=== PATIENT | female | born 1940 | race Caucasian/White ===

== ENCOUNTER 2019-02-22 05:45 | Inpatient (IN) ==
--- NOTE | 2019-02-21 10:46 | Anesthesiology Consultation ---
Date of Service February 21, 2019 Assessment & Plan Chart Review Chart Review: Acceptable Risk for Surgery and Patient NOT seen in Pre Admission Testing Consults Requested none ASA ASA4 Proposed Anesthesia Anesthesia Type: General Anesthesia Line Insertion: Arterial line History Surgery Operation Date: 02/22/19 07:30 Proposed Procedures p Left Robotic Video Assisted Thoracoscopy with Left Upper Lobectomy and Mediastinal Lymphadenectomy - Rey Marshall MD, FACS Height/Weight Height: 5 ft 5 in Weight: 88.451 kg Allergies Allergy/AdvReac Type Severity Reaction Status Date / Time No Known Allergies Allergy Verified 02/14/19 14:22 Medications Home Medications Medication Instructions Recorded Confirmed Last Taken aspirin 81 mg tablet,delayed 81 mg PO QAM 02/06/19 02/14/19 Unknown release atorvastatin 40 mg tablet 40 mg PO QPM 02/06/19 02/14/19 Unknown calcium carbonate 600 mg (1,500 1 tab PO QDL 02/06/19 02/14/19 Unknown mg)-vitamin D3 200 unit tablet esomeprazole magnesium 40 mg 40 mg PO QAM cap 02/06/19 02/14/19 Unknown capsule,delayed release latanoprost 0.005 % eye drops 1 drops OP QPM 02/06/19 02/14/19 Unknown lisinopril 40 mg tablet 40 mg PO QAM 02/06/19 02/14/19 Unknown raloxifene 60 mg tablet 60 mg PO QAM 02/06/19 02/14/19 Unknown omega-3 fatty acids 1,000 mg 1,000 mg PO QAM 02/09/19 02/14/19 Unknown capsule venlafaxine ER 75 mg 75 mg PO QAM 02/09/19 02/14/19 Unknown capsule,extended release 24 hr Past Medical History Medical History Adenocarcinoma in situ lung Arthritis Enlarged thyroid gland "PUSHING ON MY [place]" - CT SCAN OCTOBER 2018 - SARAI RAZA - PT REPORTS WILL BE NEEDING SURGERY ON THYROID IN FUTURE GERD (gastroesophageal reflux disease) History of CO (myocardial infarction) "SILENT" - YEARS AGO - FOLLOWS W/ DR. MONTEIRO History of anemia History of gastritis Hyperlipemia Hypertension Osteoarthritis Osteoporosis Sleep apnea DOES NOT TOLERATE CPAP Exercise / Class Metabolic Activity III < 4 Walking/Shop/Light housework Past Family History Family History Father Heart disease Hypertension Mother Heart disease Hypertension Stroke Sister Breast cancer Cancer 3 sisters Family history of reaction to anesthesia Past Surgical History Surgical History History of back surgery REMOVAL OF CYST History of bladder surgery X 2 History of cardiac cath 10-15 YEARS AGO - [facility] - NO STENTS. REPORTS 100% OCCLUSION BUT W/ COLLATERAL History of colonoscopy History of esophagogastroduodenoscopy (EGD) History of total abdominal hysterectomy and bilateral salpingo-oophorectomy Hx of breast surgery Status post bronchoscopy with biopsy Past Anesthesia History No Hx of Anesthesia Complications and No Family Hx of Anesthesia Complications History of PONV No Hx of PONV and No Hx of Motion Sickness Social History Smoking Status: Never smoker Do You Dip or Chew Tobacco: No Hx Alcohol Use: No Hx Substance Use: No Testing Electrocardiogram Date: 02/14/19 SR at 64 w/ short MN Chest X-Ray Date: 01/23/19 soft tissue density DHARA;superior mediastinal prominence w/ soft tissue mass or adenopathy;ASCVD;coronary artery calcifications
[2019-02-22] MEDS ORDERED: LR 15ML/HR IV SCH (06:00)
[2019-02-22] MEDS ORDERED: fentaNYL citrate 100 MCG/2 ML VIAL ONE ×2 (06:53→08:42)
[2019-02-22] MEDS ORDERED: LIDOCAINE HCL 2% 2 ML VIAL/AMP(20MG/ML) INFIL ONE (06:53)
[2019-02-22] MEDS ORDERED: PROPOFOL IV EMULSION 10 MG/ML 20 ML VIAL IV ONE (06:53)
[2019-02-22] MEDS ORDERED: MIDAZOLAM HCL 1 MG/ML 2ML VIAL ONE (06:53)
[2019-02-22] MEDS ORDERED: ROCURONIUM BROMIDE 10 MG/ML 5 ML VIAL ONE ×7 (06:53→09:39)
[2019-02-22] MEDS ORDERED: BUPIVACAINE 0.5 % 5 MG/1 ML MPF 30ML VIAL ONE (06:56)
[2019-02-22] MEDS ORDERED: SODIUM CHLORIDE 0.9% PF 50 ML VIAL ONE (06:57)
[2019-02-22] MEDS ORDERED: BUPIVACAINE LIPOSOME 1.3% 266 MG/20 ML VIAL ONE (06:57)
--- NOTE | 2019-02-22 07:11 | History & Physical Bridge Note ---
Date of Service February 22, 2019 History & Physical Bridge Note I have examined the patient, reviewed the History & Physical and in the interval since the performance of the History & Physical I have noted the following changes of clinical significance: no changes noted
[2019-02-22] MEDS ORDERED: ePHEDrine sulfate 50 MG/ML SYR ONE ×2 (08:10→10:24)
[2019-02-22] MEDS ORDERED: CLINDAMYCIN PHOS 300 MG/2 ML VIAL ONE ×2 (08:38→08:42)
[2019-02-22] MEDS ORDERED: GLYCOPYRROLATE 0.2 MG/ML VIAL ONE ×2 (08:53→09:39)
[2019-02-22] MEDS ORDERED: DEXAMETHASONE SOD INJ 4 MG/ML VIAL ONE (09:37)
[2019-02-22] MEDS ORDERED: ePHEDrine sulfate 50 MG/ML AMP IV PRN (10:15)
[2019-02-22] MEDS ORDERED: ONDANSETRON INJ 2 MG/ML 2 ML VIAL IV PRN ×2 (10:15→14:13)
[2019-02-22] MEDS ORDERED: ATROPINE SULFATE 0.1 MG/ML 10ML SYR IV PRN (10:15)
[2019-02-22] MEDS ORDERED: IPRATROPIUM BROMIDE NEB SOLN 0.02% 2.5 ML VIAL INH PRN (10:15)
--- NOTE | 2019-02-22 10:19 | Procedure Note ---
Procedure Note Date of Service February 22, 2019 Radial arterial line placed in 11 after induction of general anesthesia in preparation for VATs with Dr. Marshall. Initial attempts were made in the right wrist both with and without ultrasound guidance. Final placement was done by Dr. Marshall in the left wrist under US guidance. The left wrist was prepped with chlorhexidine. 20 G angiocath placed under sterile technique utilizing sterile gloves, surgical hats and masks. Catheter threaded using seldinger technique with return of pulsatile, bright red blood. Site covered with occlusive dressing and taped in place. Waveform consistent with correct arterial placement. After placement, fingers of procedural hand had normal pe rfusion. Patient tolerated procedure well without complications. Coding
[2019-02-22] MEDS ORDERED: VASOPRESSIN 20 UNIT/ML VIAL ONE (10:24)
[2019-02-22] MEDS ORDERED: PHENYLEPHRINE 100MCG/ML 5ML SYR ONE (10:24)
[2019-02-22] MEDS ORDERED: NEOSTIGMINE METHYLSULFATE 5 MG/5 ML SYR ONE (11:32)
[2019-02-22] MEDS ORDERED: ONDANSETRON INJ 2 MG/ML 2 ML VIAL ONE (11:33)
--- NOTE | 2019-02-22 11:50 | Post Operative Brief Note ---
PG Immediate Post Op with CF Date of Surgery February 22, 2019 Pre & Post Diagnosis Operation Date: 02/22/19 07:30 Pre-Op Diagnosis: Left Lung Adenocarcinoma Post-Op Diagnosis: Left Lung Adenocarcinoma I identified the patient and participated in the time-out.: Yes Procedure Operation Date: 02/22/19 07:30 Actual Procedures p Left Robotic Video Assisted Thoracoscopy with Left Upper Lobectomy and Mediastinal Lymphadenectomy(Left) - Rey Marshall MD, FACS Surgeon Rey Marshall MD, FACS Mental Health Coordinator Jayde Wall, [place] [facility] CCIII Estimated Blood Loss 25 Findings Consistent with Post-Op Diagnosis Specimens Specimen Description: A. L9 Lymph Node B. L8 Lymph Node x4 C. Level 7 lymph node x2 D. L10 Lymph node x2 E. L11 lymph node x7 F. Level 5 lymph node x2 G. Level 6 lymph node x 1 H. L12 lymph node x4 I. Left upper lobe (for bronchial margins) Drains Chest Tube and Olivares Catheter
[2019-02-22] MEDS ORDERED: METOCLOPRAMIDE HCL INJ 5 MG/ML 2 ML VIAL IV ONE (12:05)
[2019-02-22] MEDS: fentaNYL citrate 100 MCG/2 ML VIAL IV PRN ×2 (12:25→12:30)
--- NOTE | 2019-02-22 12:28 | XRay Report ---
SINGLE VIEW CHEST CLINICAL HISTORY: Status post left upper lobe resection. FINDINGS: An AP, portable, upright chest radiograph is correlated with PET/CT dated 02/08/2019. The ex amination is degraded by portable technique and patient rotation. There is rightward deviation of the trachea secondary to enlarged thyroid gland. The heart is top normal for projection. The pulmonary v asculature is noncongested. There is postoperative change and volume loss from left upper lobe resect ion. A left-sided chest tube is in place. No definite pneumothorax is seen. Airspace opacities are no cony in the left upper lung and at both lung bases. No large pleural effusion is identified. The skele kenny structures are osteopenic. The bony thorax is grossly intact. Calcific joint bodies are noted in the right shoulder. Subcutaneous emphysema is noted along the left chest wall and in the left lower n skip. IMPRESSION: 1. There is postoperative change from left upper lobe pulmonary resection with a left-sided chest tub e in place. 2. No pneumothorax is clearly seen. 3. Patchy airspace opacities are seen bilaterally. This could represent atelectasis versus an infecti ous/inflammatory pneumonitis. Clinical correlation will be required. Electronically signed by: Jose Monk M.D. 02/22/2019 12:27 PM
[2019-02-22] MEDS: HYDROmorphone INJ 2 MG/ML SYR/VIAL IV PRN ×2 (12:40→12:45)
[2019-02-22] MEDS ORDERED: HYDROmorphone INJ 1 MG/ML SYRINGE ONE (12:43)
--- NOTE | 2019-02-22 14:15 | Anesthesiology Progress Note ---
Date of Service February 22, 2019 Anesthesia Post Procedure Vital Signs Vital Signs: Temp Pulse Pulse Resp BP Pulse Ox 02/22/19 13:45 78 16 112/59 L 96 02/22/19 13:30 75 16 107/56 L 96 02/22/19 13:15 62 18 101/54 L 95 02/22/19 13:05 36.2 C L 67 18 127/75 95 02/22/19 12:55 36.2 C L 71 18 114/49 L 95 02/22/19 12:45 75 18 111/58 L 95 02/22/19 12:35 66 18 126/61 95 02/22/19 12:25 70 18 155/72 H 100 02/22/19 12:15 67 18 107/86 100 02/22/19 12:09 36.2 C L 70 18 133/78 100 02/22/19 06:09 36.5 C 60 18 166/85 H 97 Transfer of Care Handoff Completed per policy Notes Mental Status: alert / awake / arousable and participated in evaluation Patient Amnestic to Procedure: Yes Nausea / Vomiting: adequately controlled Pain: adequately controlled Airway Patency, RR, SpO2: stable & adequate BP & HR: stable & adequate Hydration State: stable & adequate Anesthetic Complications: no major complications apparent and Pt Satisfied with anesthetic care
[2019-02-22] MEDS: ACETAMINOPHEN 1,000 MG/100 ML VIAL IV SCH ×2 (15:25→21:39)
[2019-02-22] MEDS ORDERED: INFLUENZA ADMINISTRATION CHARGE ONE (15:30)
[2019-02-22] MEDS ORDERED: INFLUENZA VACCINE HIGH DOSE 65+ 0.5 ML SYR IM ONE (15:30)
[2019-02-22] MEDS: D5W AND 1/2NSS 1,000 ML IV SCH (16:06)
[2019-02-22] MEDS: OXYCODONE HCL IR 5 MG TAB (IMMEDIATE RELEASE) PO PRN (19:35)
[2019-02-22] MEDS: METOCLOPRAMIDE HCL INJ 5 MG/ML 2 ML VIAL IV SCH (19:38)
[2019-02-22] MEDS: ATORVASTATIN 40 MG TAB PO SCH (20:02)
[2019-02-22] MEDS: LATANOPROST 0.005% OP SOLN 2.5 ML BTL OP SCH (20:02)
[2019-02-22] MEDS: DOCUSATE SODIUM 100 MG CAP PO SCH (20:02)
[2019-02-23] MEDS: D5W AND 1/2NSS 1,000 ML IV SCH (01:25)
[2019-02-23] MEDS: OXYCODONE HCL IR 5 MG TAB (IMMEDIATE RELEASE) PO PRN ×4 (02:49→21:59)
[2019-02-23] MEDS: METOCLOPRAMIDE HCL INJ 5 MG/ML 2 ML VIAL IV SCH (03:59)
[2019-02-23] MEDS: MoRPHine SULFATE 2 MG/ML CARP IV PRN ×6 (04:12→20:15)
[2019-02-23] MEDS: ACETAMINOPHEN 1,000 MG/100 ML VIAL IV SCH ×3 (05:46→21:37)
[2019-02-23 06:15] LABS: Basophils # (auto) 0.01 K/uL (0-0.2); Basophils % (auto) 0.1 %; Hematocrit (blood only) 33.6 % (37-47); Hemoglobin 10.8 g/dL (12.0-16.0); Immature Granulocytes # (auto) 0.03 K/uL (0.00-0.02); Immature Granulocytes % (auto) 0.2 %; Lymphocytes # (auto) 0.84 K/uL (1.2-3.4); Lymphocytes % (auto) 5.1 %; Mean Corpuscular Hemoglobin 26.7 pg (25-34); Mean Platelet Volume 10.6 fL (7.4-10.4); Monocytes # (auto) 1.33 K/uL (0.11-0.59); Monocytes % (auto) 8.1 %; Neutrophils # (auto) 14.17 K/uL (1.4-6.5); Neutrophils % (auto) 86.5 %; Platelet Count 273 K/uL (130-400); RDW Coefficient of Variation 15.3 % (11.5-14.5); RDW Standard Deviation 46.8 fL (36.4-46.3); Red Blood Count 4.05 M/uL (4.2-5.4); White Blood Count 16.38 K/uL (4.8-10.8)
[2019-02-23 06:39] LABS: BUN Creatinine Ratio 17.6 (10-20); Creatinine Clr Calc Pharmacy 74.2 ml/min; Est GFR (African American) 94.3; Est GFR (Non-African American) 81.3; Potassium 3.9 mmol/L (3.5-5.1)
[2019-02-23 06:49] LABS: Mean Corpuscular Hgb Conc 32.1 g/dL (32-36)
--- NOTE | 2019-02-23 07:26 | XRay Report ---
XR chest 1V portable HISTORY: Postop. Left upper lobectomy. COMPARISON: Chest 02/22/2019. FINDINGS: Left mid and lower lung zone airspace opacities have improved. There are few linear densiti es at the right lung base suggesting subsegmental atelectasis. No pleural effusions. No pneumothorax. The heart remains mildly enlarged. Left chest tube terminates in the left midlung zone. This has bee n pulled back with the fenestrated line located at the chest wall. IMPRESSION: 1. Improved aeration within the left mid to lower lung zone. 2. No definite pneumothorax. 3. Left chest tube terminates in the left midlung zone. This has been pulled back with the fenestrate d line located at the chest wall. Electronically signed by: Andrés Schilling M.D. 02/23/2019 7:24 AM
--- NOTE | 2019-02-23 08:09 | Anesthesiology Progress Note ---
Date of Service February 23, 2019 Anesthesia Post Procedure Vital Signs Vital Signs: Temp Pulse Pulse Resp BP BP Pulse Ox 02/23/19 07:05 36.5 C 64 16 113/69 94 02/23/19 03:47 36.9 C 84 18 117/65 93 02/23/19 01:22 36.8 C 73 18 113/56 L 94 02/22/19 23:21 36.9 C 77 17 101/57 L 91 02/22/19 20:04 36.6 C 76 20 107/62 97 02/22/19 19:21 36.5 C 64 20 100/64 97 02/22/19 16:58 36.4 C L 77 18 100/62 94 02/22/19 16:22 02/22/19 16:11 36.5 C 73 20 124/70 95 02/22/19 15:28 36.9 C 76 20 114/69 95 02/22/19 14:31 79 18 112/69 97 02/22/19 14:19 36.7 C 73 16 106/63 96 02/22/19 13:45 78 16 112/59 L 96 02/22/19 13:30 75 16 107/56 L 96 02/22/19 13:15 62 18 101/54 L 95 02/22/19 13:05 36.2 C L 67 18 127/75 95 02/22/19 12:55 36.2 C L 71 18 114/49 L 95 02/22/19 12:45 75 18 111/58 L 95 02/22/19 12:35 66 18 126/61 95 02/22/19 12:25 70 18 155/72 H 100 02/22/19 12:15 67 18 107/86 100 02/22/19 12:09 36.2 C L 70 18 133/78 100 Pulse Ox 02/23/19 07:05 02/23/19 03:47 02/23/19 01:22 02/22/19 23:21 02/22/19 20:04 02/22/19 19:21 02/22/19 16:58 02/22/19 16:22 95 02/22/19 16:11 02/22/19 15:28 02/22/19 14:31 02/22/19 14:19 96 02/22/19 13:45 02/22/19 13:30 02/22/19 13:15 02/22/19 13:05 02/22/19 12:55 02/22/19 12:45 02/22/19 12:35 02/22/19 12:25 02/22/19 12:15 02/22/19 12:09 Notes Mental Status: alert / awake / arousable and participated in evaluation Patient Amnestic to Procedure: Yes Nausea / Vomiting: adequately controlled Pain: adequately controlled Airway Patency, RR, SpO2: stable & adequate BP & HR: stable & adequate Hydration State: stable & adequate Anesthetic Complications: no major complications apparent and Pt Satisfied with anesthetic care
[2019-02-23] MEDS: RALOXIFENE HCL 60 MG TAB PO SCH (08:26)
[2019-02-23] MEDS: PANTOprazole 40 MG TAB PO SCH (08:26)
[2019-02-23] MEDS: LISINOPRIL 40 MG TAB PO SCH (08:26)
[2019-02-23] MEDS: ASPIRIN 81 MG ECTAB PO SCH (08:26)
[2019-02-23] MEDS: DOCUSATE SODIUM 100 MG CAP PO SCH ×2 (08:26→20:24)
[2019-02-23] MEDS: ENOXAPARIN INJ 40 MG/0.4 ML SYR SQ SCH (08:26)
[2019-02-23] MEDS: VENLAFAXINE HCL XR 75 MG CAPXR PO SCH (08:26)
--- NOTE | 2019-02-23 08:30 | Progress Note ---
DATE: 02/23/2019 Ms. Gaona was seen today 1 day status post robot-assisted thoracoscopic left upper lobectomy for nonsmall cell lung carcinoma. She did very well. She is ambulating in the room. There have been a few problems. One is she has had some urinary retention. She had to be straight catheterized x1, but this has responded now and she is voiding. She has had very little drainage from her chest tube; however, she does have a small air leak. Her lung is fully expanded with no atelectasis and no effusions or infiltrates. I am quite pleased with how well she looks. She also sounds good on auscultation. In reviewing her labs, her white count is 16,380 which is not surprising. Hemoglobin is 10.8, again no surprises there. Her BUN and creatinine are 13 and 0.72. I am going to stop her IV fluids. ASSESSMENT AND PLAN: Postoperative day #1, status post lobectomy for lung cancer. She looks quite good. We will get her up ambulating more. When her small air leak resolves, we will remove her chest tube and discharge her.
[2019-02-23] MEDS: CALCIUM 600MG + VIT D 400 IU TAB PO SCH (11:10)
[2019-02-23] MEDS: ATORVASTATIN 40 MG TAB PO SCH (20:24)
[2019-02-23] MEDS: LATANOPROST 0.005% OP SOLN 2.5 ML BTL OP SCH (20:25)
[2019-02-24] MEDS: MoRPHine SULFATE 2 MG/ML CARP IV PRN ×3 (03:30→20:27)
[2019-02-24] MEDS: OXYCODONE HCL IR 5 MG TAB (IMMEDIATE RELEASE) PO PRN ×3 (05:15→18:57)
[2019-02-24] MEDS: ACETAMINOPHEN 1,000 MG/100 ML VIAL IV SCH ×3 (05:16→21:39)
--- NOTE | 2019-02-24 07:05 | XRay Report ---
XR chest 1V portable CLINICAL HISTORY: 78 years-old Female presenting with lobectomy. TECHNIQUE: Portable upright AP view of the chest was obtained. COMPARISON: 02/23/2019 and PET/CT from 02/08/2019. FINDINGS: The large bore left pleural drain may be slightly advanced though remains at the level of the left mi dlung. Associated mild soft tissue emphysema along the left chest wall. Atherosclerosis of the aortic arch. Cardiac silhouette moderately enlarged. Suture margin is projected over the left hilum consistent with the history of left upper lobectomy. D iffusely coarsened lung markings. Focal round radiolucencies in the left lung are suggested, better d elineated from prior potentially due to added density of surrounding parenchyma. Small right and trac e left pleural effusions stable to increased from prior. Right basilar opacities stable to increased from prior. No pneumothorax. Degenerative changes of the thoracic spine. Prominent loose bodies in the right glenohumeral joint. U pper abdomen normal. IMPRESSION: 1. The large bore left pleural drain may have been slightly advanced and remains at the left midlung . 2. Apparent cystic spaces in the left midlung increased in conspicuity from prior possibly due to in creased surrounding parenchymal density. Underlying congestive change and edema may be present. 3. Stable to slight increase in small right and trace left pleural effusions. 4. Right basilar atelectasis stable from prior. Electronically signed by: Teddy Chinchilla M.D. 02/24/2019 7:04 AM
[2019-02-24] MEDS: ENOXAPARIN INJ 40 MG/0.4 ML SYR SQ SCH (08:18)
[2019-02-24] MEDS: ASPIRIN 81 MG ECTAB PO SCH (08:19)
[2019-02-24] MEDS: VENLAFAXINE HCL XR 75 MG CAPXR PO SCH (08:19)
[2019-02-24] MEDS: DOCUSATE SODIUM 100 MG CAP PO SCH ×2 (08:19→20:33)
[2019-02-24] MEDS: LISINOPRIL 40 MG TAB PO SCH (08:19)
[2019-02-24] MEDS: PANTOprazole 40 MG TAB PO SCH (08:19)
[2019-02-24] MEDS: RALOXIFENE HCL 60 MG TAB PO SCH (08:19)
[2019-02-24] MEDS: CALCIUM 600MG + VIT D 400 IU TAB PO SCH (11:12)
--- NOTE | 2019-02-24 11:38 | Progress Note ---
DATE: 02/24/2019 Ms. Gaona looks great. She is 96% today on room air, although the chart says on nasal cannula. Her lungs are clear. She is eating better. She has ambulated quite a bit. She complained of some pain in her calf, which has resolved today. This patient ambulated at least 15 times in the hallway yesterday. She still has a tiny air leak. I am probably going to go ahead and keep her chest tube in probably for another day. I told her she may be in the hospital for the next 24-48 hours. She has done quite well and this air leak is almost resolved.
[2019-02-24] MEDS: ATORVASTATIN 40 MG TAB PO SCH (20:33)
[2019-02-24] MEDS: LATANOPROST 0.005% OP SOLN 2.5 ML BTL OP SCH (20:33)
[2019-02-25] MEDS: MoRPHine SULFATE 2 MG/ML CARP IV PRN (01:50)
[2019-02-25] MEDS: ACETAMINOPHEN 1,000 MG/100 ML VIAL IV SCH (06:21)
[2019-02-25] MEDS: RALOXIFENE HCL 60 MG TAB PO SCH (08:19)
[2019-02-25] MEDS: LISINOPRIL 40 MG TAB PO SCH (08:19)
[2019-02-25] MEDS: ENOXAPARIN INJ 40 MG/0.4 ML SYR SQ SCH (08:19)
[2019-02-25] MEDS: DOCUSATE SODIUM 100 MG CAP PO SCH (08:19)
[2019-02-25] MEDS: VENLAFAXINE HCL XR 75 MG CAPXR PO SCH (08:19)
[2019-02-25] MEDS: PANTOprazole 40 MG TAB PO SCH (08:19)
[2019-02-25] MEDS: ASPIRIN 81 MG ECTAB PO SCH (08:19)
--- NOTE | 2019-02-25 09:20 | XRay Report ---
XR chest 1V portable CLINICAL HISTORY: lobectomy COMPARISON STUDY: Chest radiograph February 24, 2019. FINDINGS: The left chest tube has been partially withdrawn. There is gas within the left chest wall. There is a small left pneumothorax. There are postoperative findings within the left lung. Cardiomedi astinal silhouette is stable. IMPRESSION: Small left pneumothorax. Left chest tube in place. Electronically signed by: Hipolito Roach M.D. 02/25/2019 9:19 AM
--- NOTE | 2019-02-25 09:22 | XRay Report ---
XR chest 1V portable CLINICAL HISTORY: chest tube removal COMPARISON STUDY: Chest radiograph February 25, 2019 at 8:50 AM. FINDINGS: Left chest tube has been withdrawn. A small left pneumothorax has slightly increased in siz e. There is gas within the left chest wall. Mild left lung opacity is noted. There are postoperative findings within the left lung. There is cardiomegaly without evidence for pulmonary edema. Left media stinal widening with rightward displacement of the trachea is unchanged from earlier PET/CT. This is due to a left lobe thyroid goiter. IMPRESSION: Interval removal of the left chest tube. Slight increase in size of a small left pneumot horax. Electronically signed by: Hipolito Roach M.D. 02/25/2019 9:21 AM
--- NOTE | 2019-02-25 09:53 | Discharge Summary ---
DATE OF ADMISSION: 02/22/2019 DATE OF DISCHARGE: 02/25/2019 DISCHARGE DIAGNOSES: 1. Primary adenocarcinoma of the left upper lobe. 2. Hypertension. 3. Hyperlipidemia. 4. Gastroesophageal reflux disease. 5. Apparent history of myocardial infarction. 6. History of anemia. 7. Obstructive sleep apnea. 8. Osteoporosis. HOSPITAL COURSE: Jessica Gaona is a well-preserved 78-year-old female who walks 3 miles a day at least once who has never smoked cigarettes, but was found to have a mass in her left upper lobe. This was found serendipitously. She underwent a workup including a needle biopsy which showed a carcinoma in situ while biopsy. I saw the patient in the office and set her up for surgery who felt to be a good candidate. On 02/22/2019, the patient underwent an uncomplicated robot-assisted thoracoscopic left upper lobectomy with mediastinal lymphadenectomy. She did very well except for a tiny air leak which resolved at the end of postoperative day 2. On postoperative day 3, I removed her chest tube and her x-ray looked quite good. She was ambulating in the hallway quite a bit. She was tolerating a diet. She was on room air. Her incisions were clean and she sounded quite good on auscultation. Her final pathology showed a minimally invasive adenocarcinoma with negative margins and negative lymph nodes. I had a long talk with the patient about the care of her incisions. She will need to remove her dressings in 3 days, take a shower. She has done quite well with this and I suspect she will do well. I will see her back in the office the week of 03/06 and we will go over her pathology results at that time. The patient also has a thyroid mass in the left lobe of the thyroid and she is concerned about this; however, I told her that her primary care physician would refer her to a surgeon closer to home. After her chest tube had been removed, the patient stated she "didn't feel right" and a repeat CXR and venous doppler were checked without evidence of a DVT or pneumothorax. She felt better and her vitals were all fine. I suspect she had some anxiety which settled down. I will see her next week and encouraged her to call me with any issues. SARKIS
[2019-02-25] MEDS: CALCIUM 600MG + VIT D 400 IU TAB PO SCH (12:09)
--- NOTE | 2019-02-25 13:06 | XRay Report ---
XR chest 1V portable CLINICAL HISTORY: Recent chest tube removal. COMPARISON STUDY: Chest radiograph February 25, 2019 at 9:00 AM. FINDINGS: Gas within the left chest wall is unchanged. A trace left apical pneumothorax has decreased in size. There may be minimal pleural gas within the lateral left hemithorax. This is unchanged. Rig ht basilar opacity favors atelectasis. Mild cardiomegaly is noted. Deviation of the trachea is due to a left lobe thyroid goiter, as shown on prior PET/CT. There are postoperative finding within the lef t lung. IMPRESSION: Trace left pneumothorax, decreased in size since prior exam. Electronically signed by: Hipolito Roach M.D. 02/25/2019 1:05 PM
--- NOTE | 2019-02-25 14:39 | Ultrasound Report ---
BILATERAL LOWER EXTREMITY VENOUS DOPPLER CLINICAL HISTORY: Recent surgery. COMPARISON STUDY: No previous studies for comparison. TECHNIQUE: Sonography of the deep venous system of the bilateral lower extremities was performed. Co mpression and augmentation were evaluated. FINDINGS: The bilateral common femoral, superficial femoral and popliteal veins were compressible. A ugmentation was normal. Flow was shown within the deep calf vessels although the calf vessels were stuart boptimally assessed on this exam. IMPRESSION: No evidence of deep venous thrombus within the bilateral lower extremities. Electronically signed by: Hipolito Roach M.D. 02/25/2019 2:37 PM
--- NOTE | 2019-03-01 11:05 | Coding Query ---
CODING QUERY To promote full compliance with coding requirements relating to patient care, provider participation is requested in all cases of senior patient account representative uncertainty. Please assist us with the question(s) below: Coding Question(s): Patient admitted with malignancy DHARA lung, OP - thorascoscopic lung resection,lymphadenectomy. Progress note states " small air leak, will keep patient in for another day". Please check below the phrase that describes the Postoperative Air Leak. Thanks for your help!! ANKITA Whitaker [facility] Physician's Response(s): ___X___ The postoperative air leak is expected after this surgery The postoperative air leak is a complication of the surgery Cannot determine if the postoperative air leak is a complication or expected after this surgery Other: please document: Principal Diagnosis: "that condition established after study, to be chiefly responsible for occasioning the admission of the patient to the hospital for care." Co-Existing Principal Diagnosis: "when two or more diagnoses equally meet the criteria for principal diagnosis as determined by the circumstances of admission, diagnostic work up, and/or therapy provided, and the Alphabetic Index, Tabular List, or another coding guideline does not provide sequencing direction, any one of the diagnoses may be sequenced first." "When the physician has documented what appears to be a current diagnosis in the body of the record, but has not included the diagnosis in the final diagnostic statement, the physician should be asked whether the diagnosis should be added." (Source [facility]oding [facility] 2 QTR90. p3-4) SOFIAD
--- NOTE | 2019-03-08 09:51 | Operative Report ---
[facility] Post Operative Report Pre & Post Diagnosis Operation Date: 02/22/19 07:30 Pre-Op Diagnosis: Left Lung Adenocarcinoma Post-Op Diagnosis: Left Lung Adenocarcinoma I identified the patient and participated in the time-out.: Yes Procedure Operation Date: 02/22/19 07:30 Actual Procedures p Left Robotic Video Assisted Thoracoscopy with Left Upper Lobectomy and Mediastinal Lymphadenectomy(Left) - Rey Marshall MD, FACS Surgeon Rey Marshall MD, FACS Licensing Worker Acacia Mauricio CCIII Estimated Blood Loss 25 Findings Consistent with Post-Op Diagnosis Specimens see brief op note Drains 24 fr chest tube Anesthesia Type General Complications none Disposition Accompanied Patient To Recovery: No Disposition: Recovery Room Description of Procedure Patient was identified in the holding area. She was brought to the operating room. She was laid in supine position and intubation was performed using a double-lumen tube. Arterial line, Olivares catheter, and appropriate IVs were placed. Patient was then turned to the right lateral decubitus position her left chest was evaluated. Appropriate prophylactic antibiotics were given and appropriate timeout was called. One lung ventilation ensued. A 5 mm port was placed in the seventh interspace and we could see there were no adhesions. This was switched over to a 12 mm camera port. 8 millimeter ports were placed medially and laterally in the same interspace and then a 5 mm port was placed posteriorly. An patient observation assistant's port was created anteriorly just above the diaphragm. All these ports were placed under thoracoscopic guidance. 266 mg of Exparel in 20 cc of solution was mixed with 30 cc of 0.5% bupivacaine and 250 cc of normal saline. This was then used to inject each of the port sites before making our incisions. We also used it to do an intercostal block from the second to the 11th rib intrathoracicly under thoracoscopic guidance. The robot was then docked. The inferior pulmonary ligament was taken down and I harvested the level 9 level and 8 lymph node on the left. We then came to the level 7 area and I dissected this out to remove level 7 nodes as well as level 10 nodes. I then dissected out the artery bluntly and sharply until we identified the fissure nicely and we could see the branches of the pulmonary artery going to the upper lobe. I then continued superiorly and dissected at a level 5 and level 6 node with care taken avoid injury to the recurrent laryngeal, vagus nerve, and phrenic nerve. I then dissected out level 10 nodes anteriorly and dissected out the artery and superior pulmonary vein. We these. Coming back medially we opened the pleura and came down and got down to the inferior pulmonary vein we identified this as well as the lingual vein draining the lingula. The fissure was almost complete and we completed this posteriorly without difficulty by firing the stapler one time. We are able to identify the arteries nicely. At this point we elected to take the anterior branch of the pulmonary artery going to the left upper lobe. This was divided with an Endo RENÉ stapler. Coming down we then dissected out the anterior fissure and fired an Endo RENÉ stapler to complete this x2. This freed up the artery and we identified the vein and bronchus quite nicely. The lingual artery was identified. This was then di vided with an Endo RENÉ stapler without difficulty. Coming anteriorly and more superiorly we came upon the apical posterior branch was divided with an Endo RENÉ stapler. This left just the left upper lobe bronchus and the superior pulmonary vein. The lingular branch and the superior pulmonary vein draining the left upper lobe were divided with an Endo RENÉ stapler without difficulty. This left just the bronchus and we pulled this up and put an Endo RENÉ stapler across this and fired this right at its takeoff. The area was then inspected for an air leak and we did not see one. We had no significant bleeding. We inflated the lung and it filled quite nicely. A large Endo bag was then used to collect the left upper lobe specimen. The patient observation assistant's port inferiorly and anteriorly was opened a bit more able to deliver the lobe off the field. Frozen section was sent on the margins and this showed this to be negative for malignant disease. A 24 Welsh chest tube was placed to the anterior port and directed superiorly and sutured in place with heavy silk suture. 0 Vicryl was used to close the muscle layers of the assistance port and the camera port. The robot had been undocked and all ports removed. Should be noted we used CO2 insufflation for this case. 4-0 Monocryl was used in running septic or fashion approximate the wound edges of all the wounds. Patient was extubated in the room and was transported to the postanesthesia care unit in stable condition. I attest to the content of the Intraoperative Record and any orders documented therein. Any exceptions are noted below.
== END 2019-02-25 14:52 | disposition home or self-care (01) | DRG 164 ==
LOC: ASU 05:45 → 3W 11:53